=== PATIENT | female | born 1995 | race African-American/Black ===

== ENCOUNTER 2016-10-05 15:20 | Emergency (ER) | payer OTHER ==
--- NOTE | ~2016-10-05 | CT4 ---
[facility] A Service of [facility] RADIOLOGY TEXT RESULTS PATIENT: NU BILLS LOCATION: CFTX : 93 UNIT #: [id number] AGE: [address]: Shobha Garcia SEX: F ORDER DR: [id number] [facility] [address] [place], [place] [address] [id number] E MR#: [id number] Acc #: [id number] NAME: NU BILLS : 1995 SEX: F STUDY DATE/TIME: 10/05/2016 16:08 UNIT: CFTX ROOM: STUDY DESCRIPTION: CT Abd and Pelv Wo Cont Attending Physician: Shobha Garcia P.A.-C. Ordering Physician: Shobha Garcia P.A.-C. Primary Care Physician: Primary Care Physician No MEDICAL IMAGING REPORT This report is preliminary unless electronic signature is present EXAM CT of the abdomen and pelvis without contrast, 10/05/2016 INDICATION 21-year-old female with right flank pain for [address] of the abdomen and pelvis was performed without contrast. Coronal and sagittal reformatted images obtained. No comparisons. This CT exam was performed with one or more of the following radiation dose reduction techniques: automatic exposure control, adjustment of mA and/or kV according to patient size, and iterative reconstruction. FINDINGS There is a calcified granuloma in the left lower lobe. The lung bases are otherwise clear. The liver, gallbladder and spleen are unremarkable. Kidneys are unremarkable. There is no renal stone or hydronephrosis. The adrenal glands and pancreas are unremarkable. PELVIS: The colon is unremarkable. The appendix is normal. Bone windows are unremarkable. IMPRESSION No acute findings. No evidence of renal or ureteral stone. Dictated by... Kiran Hallman M.D. [facility] A Service of [facility] RADIOLOGY TEXT RESULTS PATIENT: NU BILLS LOCATION: CFTX : 93 UNIT #: [id number] AGE: [address]: Shobha Garcia SEX: F ORDER DR: THIS IS AN ELECTRONICALLY VERIFIED REPORT Kiran Hallman M.D. at 10/06/2016 3:38 PM Kvng TD: 10/06/2016 01:44 JOB #: [id number] MEDICAL IMAGING REPORT COPY
[2016-10-05 15:56] LABS: BASOPHIL% 0.4 % (0-2.5); EOSINOPHIL# 0.2 X10e3 (0-0.7); EOSINOPHIL% 2.9 % (0.0-7.0); HEMOGLOBIN 13.1 gm/dL (12.0-16.0); LYMPHOCYTE# 2.2 X10e3 (1.0-3.5); LYMPHOCYTE% 39.2 % (17.0-45.0); MEAN CELL VOLUME 81.7 FL (83-96); MEAN CORPUSCULAR HEMOGLOBIN 28.1 PG (28-34); MEAN CORPUSCULAR HGB CONC 34.4 g/dL (30-36); MEAN PLATELET VOLUME 7.7 FL (6.5-11.5); MONOCYTE# 0.4 X10e3 (0-1.0); MONOCYTE% 7.3 % (3.0-12.0); NEUTROPHIL# 2.8 X10e3 (1.5-7.1); NEUTROPHIL% 50.2 % (40-75); PLATELET COUNT 238 X10e3 (140-420); RED BLOOD COUNT 4.64 X10e (3.90-5.30); RED CELL DISTRIBUTION WIDTH 15.7 % (11.0-15.5); WHITE BLOOD COUNT 5.5 X10e3 (4.0-10.5)
[2016-10-05 15:58] LABS: DIFF IND NO
[2016-10-05 16:03] LABS: URINE SOURCE CLEAN CATCH
[2016-10-05 16:10] LABS: URINE APPEARANCE CLEAR; URINE BILIRUBIN NEG (NEG); URINE BLOOD NEG (NEG); URINE COLOR YELLOW; URINE GLUCOSE NEG (NEG); URINE KETONE NEG (NEG); URINE LEUKOCYTE ESTERASE NEG (NEG); URINE NITRATE NEG (NEG); URINE PROTEIN NEG (NEG); URINE SPECIFIC GRAVITY 1.028 (1.003-1.035); URINE UROBILINOGEN 0.2 MG/DL (NEG)
[2016-10-05 16:14] LABS: CULTURE INDICATED? NO
[2016-10-05 16:40] LABS: ALBUMIN SERUM 4.3 g/dL (3.5-5.0); ALKALINE PHOSPHATASE 57 U/L (32-92); ALT (SGPT) 18 U/L (10-40); AMYLASE 36 U/L (0-46); AST (SGOT) 22 U/L (10-42); BILIRUBIN, DIRECT 0.2 mg/dL (0.0-0.2); BILIRUBIN,INDIRECT 0.9 mg/dL (0.0-0.9); BILIRUBIN,TOTAL 1.1 mg/dL (0.2-2.0); BLOOD UREA NITROGEN 14 mg/dL (9-23); BUN/CREATININE RATIO 23.33; CALCIUM SERUM 9.2 mg/dL (8.4-10.2); CARBON DIOXIDE 24 mmol/L (22-31); CHLORIDE 104 mmol/L (100-111); CREATININE SERUM 0.6 mg/dL (0.6-1.4); GLOM FILT RATE Estimated ABOVE60 mL/min (>60); GLUCOSE FASTING 79 mg/dL (70-110); POTASSIUM 4.1 mmol/L (3.5-5.1); PROTEIN TOTAL SERUM 7.7 g/dL (6.0-8.3); SODIUM 137 mmol/L (135-145)
== END 2016-10-05 17:10 | disposition home or self-care (01) ==
LOC: CFTX 15:20
PROVIDERS: Physician Assistant
DX: R10.30 Lower abdominal pain, unspecified (principal)
CPT/HCPCS: 36415; 74176; 80048; 80076; 81003; 82150; 84703; 85025; 85379; 96374; 99284; J1885

== ENCOUNTER 2016-12-06 12:19 | Emergency (ER) | payer OTHER ==
--- NOTE | ~2016-12-06 | CR107 ---
[facility] A Service of [facility] & [facility] RADIOLOGY TEXT RESULTS PATIENT: NU BILLS LOCATION: CFTX : 93 UNIT #: [id number] AGE: [address]: Armida Wylie APRN SEX: F ORDER DR: [id number] [facility] [address] [place], [place] [address] [id number] E MR#: [id number] Acc #: [id number] NAME: NU BILLS : 1995 SEX: F STUDY DATE/TIME: 12/06/2016 13:18 UNIT: [facility] ROOM: STUDY DESCRIPTION: CR Femur 2 Views Rt Attending Physician: Armida Wylie A.P.R.N. Ordering Physician: Er [facility]icians Primary Care Physician: Primary Care Physician No MEDICAL IMAGING REPORT This report is preliminary unless electronic signature is present EXAM Right femur HISTORY Right femur pain for a week with no known injury. FINDINGS AP and lateral views of the femur show no evidence of fracture, bone destruction, or periosteal elevation. Adjacent soft tissue structures are normal. IMPRESSION Normal femur. Dictated by... Martín Nielsen M.D. THIS IS AN ELECTRONICALLY VERIFIED REPORT Martín Nielsen M.D. at 12/06/2016 3:39 PM JOHN/brandon TD: 12/06/2016 14:57 JOB #: [id number] MEDICAL IMAGING REPORT Page 1 of 1 COPY
--- NOTE | ~2016-12-06 | CR151 ---
[facility] A Service of [facility] RADIOLOGY TEXT RESULTS PATIENT: NU BILLS LOCATION: CFTX : 93 UNIT #: [id number] AGE: [address]: Armida Wylie APRN SEX: F ORDER DR: [id number] [facility] [address] [place], [place] [address] [id number] E MR#: [id number] Acc #: [id number] NAME: NU BILLS : 1995 SEX: F STUDY DATE/TIME: 12/06/2016 13:12 UNIT: [facility] ROOM: STUDY DESCRIPTION: CR Hip Min 2 Views Rt Attending Physician: Armida Wylie A.P.R.N. Ordering Physician: Ed Howard Cueto M.D. Primary Care Physician: No Primary Care Physician MEDICAL IMAGING REPORT This report is preliminary unless electronic signature is present EXAM Right hip series, 12/06/2016 HISTORY Pain. No injury. Cough. Leg pain, chest pain. 1-week duration. No known injury. FINDINGS AP radiograph of the pelvis presented with frog-leg view right hip. Bony ring of pelvis is intact. Sacroiliac joints, sacral arcuate lines intact. Bilateral hip joints normal in appearance. Proximal bilateral femurs intact. Periarticular soft tissues unremarkable. Visualized bowel gas pattern normal. Dictated by... Clay Tang M.D. THIS IS AN ELECTRONICALLY VERIFIED REPORT Clay Tang M.D. at 12/07/2016 6:09 PM Joshua TD: 12/06/2016 15:02 JOB #: [id number] MEDICAL IMAGING REPORT Page 1 of 1 COPY
--- NOTE | ~2016-12-06 | CR63 ---
[facility] A Service of [facility] RADIOLOGY TEXT RESULTS PATIENT: NU BILLS LOCATION: CFTX : 93 UNIT #: [id number] AGE: [address]: Armida Wylie APRN SEX: F ORDER DR: [id number] [facility] [address] [place], [place] [address] [id number] E MR#: [id number] Acc #: [id number] NAME: NU BILLS : 1995 SEX: F STUDY DATE/TIME: 12/06/2016 13:08 UNIT: [facility] ROOM: STUDY DESCRIPTION: CR Chest 2 View Attending Physician: Armida Wylie A.P.R.N. Ordering Physician: Ed Doctor [id number] [facility] Primary Care Physician: Primary Care Physician No MEDICAL IMAGING REPORT This report is preliminary unless electronic signature is present EXAM 2 views chest, 12/06/2016 HISTORY Chest pain. 1 week duration. No known injury. Cough, leg pain. FINDINGS PA and lateral radiographs of the chest are presented. No comparisons. Bony structures unremarkable. Heart and mediastinum are normal in size and contour. Lungs moderately well inflated. There is no evidence of acute pulmonary disease, pleural effusion or pneumothorax. No suspicious nodule. Visualized abdomen unremarkable. Dictated by... Clay Tang M.D. THIS IS AN ELECTRONICALLY VERIFIED REPORT Clay Tang M.D. at 12/07/2016 6:09 PM Roxanne TD: 12/06/2016 15:20 JOB #: [id number] MEDICAL IMAGING REPORT Page 1 of 1 COPY
[2016-12-06 12:41] LABS: BASOPHIL% 0.3 % (0-2.5); EOSINOPHIL# 0.2 X10e3 (0-0.7); EOSINOPHIL% 3.8 % (0.0-7.0); HEMATOCRIT 40.1 % (35.0-45.0); HEMOGLOBIN 13.3 gm/dL (12.0-16.0); LYMPHOCYTE# 1.8 X10e3 (1.0-3.5); MEAN CELL VOLUME 82.4 FL (83-96); MEAN CORPUSCULAR HEMOGLOBIN 27.3 PG (28-34); MEAN CORPUSCULAR HGB CONC 33.1 g/dL (30-36); MEAN PLATELET VOLUME 6.9 FL (6.5-11.5); MONOCYTE# 0.4 X10e3 (0-1.0); MONOCYTE% 7.6 % (3.0-12.0); NEUTROPHIL# 2.2 X10e3 (1.5-7.1); NEUTROPHIL% 48.3 % (40-75); PLATELET COUNT 246 X10e3 (140-420); RED BLOOD COUNT 4.87 X10e (3.90-5.30); WHITE BLOOD COUNT 4.6 X10e3 (4.0-10.5)
[2016-12-06 12:43] LABS: DIFF IND NO
[2016-12-06 12:54] LABS: URINE SOURCE CLEAN CATCH
[2016-12-06 13:07] LABS: ALBUMIN SERUM 4.1 g/dL (3.5-5.0); BUN/CREATININE RATIO 11.42; CALCIUM SERUM 9.2 mg/dL (8.4-10.2); CREATININE SERUM 0.7 mg/dL (0.6-1.4); GLOM FILT RATE Estimated 141.5 mL/min (>60); POTASSIUM 3.6 mmol/L (3.5-5.1); PROTEIN TOTAL SERUM 7.7 g/dL (6.0-8.3)
[2016-12-06 13:13] LABS: URINE APPEARANCE CLEAR; URINE BILIRUBIN NEG (NEG); URINE BLOOD NEG (NEG); URINE COLOR YELLOW; URINE GLUCOSE NEG (NEG); URINE KETONE NEG (NEG); URINE LEUKOCYTE ESTERASE TRACE (NEG); URINE NITRATE NEG (NEG); URINE PROTEIN NEG (NEG); URINE SPECIFIC GRAVITY 1.021 (1.003-1.035)
[2016-12-06 13:15] LABS: CULTURE INDICATED? YES; U HYALINE CASTS AUWI 0-2 /[LPF]; URINE BACTERIA AUWI 1+ (NEGATIVE); URINE SQUAMOUS EPITHELIAL CELL FEW /[HPF]
== END 2016-12-06 15:04 | disposition home or self-care (01) ==
LOC: CFTX 12:19
PROVIDERS: Nurse Practitioner
DX: M25.551 Pain in right hip (principal); J06.9 Acute upper respiratory infection, unspecified
CPT/HCPCS: 36415; 71020; 73502; 73552; 80053; 81003; 84703; 85025; 87086; 96372; 99283; 99284; J1885

== ENCOUNTER 2017-03-16 13:33 | Emergency (ER) | payer OTHER ==
[~2017-03-16] VITALS: Ht 160 cm; Wt 77.1 kg
[2017-03-16 15:15] LABS: BASOPHIL% 0.2 % (0-2.5); EOSINOPHIL# 0.1 X10e3 (0-0.7); EOSINOPHIL% 1.4 % (0.0-7.0); HEMATOCRIT 36.3 % (35.0-45.0); HEMOGLOBIN 12.5 gm/dL (12.0-16.0); LYMPHOCYTE# 1.7 X10e3 (1.0-3.5); LYMPHOCYTE% 27.9 % (17.0-45.0); MEAN CELL VOLUME 80.7 FL (83-96); MEAN CORPUSCULAR HEMOGLOBIN 27.8 PG (28-34); MEAN CORPUSCULAR HGB CONC 34.5 g/dL (30-36); MEAN PLATELET VOLUME 7.2 FL (6.5-11.5); MONOCYTE# 0.5 X10e3 (0-1.0); MONOCYTE% 7.4 % (3.0-12.0); NEUTROPHIL# 3.9 X10e3 (1.5-7.1); NEUTROPHIL% 63.1 % (40-75); PLATELET COUNT 243 X10e3 (140-420); RED CELL DISTRIBUTION WIDTH 15.5 % (11.0-15.5); WHITE BLOOD COUNT 6.3 X10e3 (4.0-10.5)
[2017-03-16 15:23] LABS: URINE SOURCE CLEAN CATCH
[2017-03-16 15:26] LABS: URINE APPEARANCE CLEAR; URINE BILIRUBIN NEG (NEG); URINE BLOOD NEG (NEG); URINE COLOR DK YELLOW; URINE GLUCOSE NEG (NEG); URINE KETONE NEG (NEG); URINE LEUKOCYTE ESTERASE NEG (NEG); URINE NITRATE NEG (NEG); URINE PH 6.5 (5-8); URINE PROTEIN NEG (NEG); URINE SPECIFIC GRAVITY 1.028 (1.003-1.035)
[2017-03-16 15:28] LABS: DIFF IND YES
[2017-03-16 15:29] LABS: PLATELET ESTIMATE NORMAL (NORMAL)
[2017-03-16 15:30] LABS: ALBUMIN SERUM 4.3 g/dL (3.5-5.0); CALCIUM SERUM 9.4 mg/dL (8.4-10.2); CREATININE SERUM 0.5 mg/dL (0.6-1.4); GLOM FILT RATE Estimated 158.1 mL/min (>60); POTASSIUM 3.5 mmol/L (3.5-5.1); PROTEIN TOTAL SERUM 7.6 g/dL (6.0-8.3)
[2017-03-16 15:33] LABS: CULTURE INDICATED? NO
[2017-03-20 14:54] LABS: CHLAMYDIA TRACH Not Detected (Not Detected); N GONOR Not Detected (Not Detected)
== END 2017-03-16 17:00 | disposition home or self-care (01) ==
LOC: CED 13:33 → CFTX 13:33
PROVIDERS: Nurse Practitioner
DX: O20.9 Hemorrhage in early pregnancy, unspecified (principal); O99.511 Diseases of the respiratory system complicating pregnancy, first trimester; J06.9 Acute upper respiratory infection, unspecified; Z3A.08 8 weeks gestation of pregnancy
CPT/HCPCS: 80053; 81003; 84702; 84703; 85025; 86308; 87491; 87591; 87651; 87808; 99284